=== PATIENT | female | born 2000 | race African-American/Black ===

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

== ENCOUNTER 2018-05-31 23:02 | Emergency (ER) | payer MEDICAID ==
[~2018-05-31] VITALS: Ht 165.1 cm; Wt 65.1 kg
[2018-05-31 23:10] VITALS: BP 130/76
--- NOTE | 2018-05-31 23:12 | NUR ---
PT RETURNED TO LOBBY IN STABLE CONDITION
--- NOTE | 2018-05-31 23:17 | NUR ---
TO ER BED 12
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
--- NOTE | 2018-05-31 23:54 | NUR ---
TO RADIOLOGY VIA
[2018-06-01 00:23] LABS: BASOPHILS % (AUTO) 0.6 % (0.0-2.0); EOSINOPHILS # (AUTO) 0.1 K/uL (0-0.4); EOSINOPHILS % (AUTO) 2.7 % (0.0-4.0); HEMATOCRIT 37.9 % (36-48); HEMOGLOBIN 12.3 g/dL (12.0-16.0); LYMPHOCYTES # (AUTO) 1.6 K/uL (2.5-16.5); LYMPHOCYTES % (AUTO) 34.5 % (20.5-51.1); MEAN CORPUSCULAR HEMOGLOBIN 27 pg (27-31); MEAN CORPUSCULAR HGB CONC 32 g/dL (33-37); MONOCYTES # (AUTO) 0.5 K/uL (0.8-1.0); MONOCYTES % (AUTO) 10.9 % (1.7-9.3); NEUTROPHILS # (AUTO) 2.4 K/uL (1.8-7.7); NEUTROPHILS % (AUTO) 51.3 % (42.2-75.2); PLATELET COUNT (AUTO) 290 K/uL (140-450); RED BLOOD CELL COUNT(AUTO) 4.51 MIL/uL (4.20-5.40); RED CELL DISTRIBUTION WIDTH 12.7 % (11.6-13.7); WHITE BLOOD COUNT (AUTO) 4.6 K/uL (4.5-11.0)
[2018-06-01 00:55] VITALS: BP 127/71
[2018-06-01 01:34] LABS: ALBUMIN 3.6 g/dL (3.4-5.0); ANION GAP 10.6 (8-16); CARBON DIOXIDE 30.4 mmol/L (21-32); CREATININE 0.8 mg/dL (0.6-1.3); TOTAL BILIRUBIN 0.4 mg/dL (0.0-1.0)
== END 2018-06-01 00:54 | disposition home or self-care (01) ==
LOC: MED 23:02
DX: K59.00 Constipation, unspecified (principal)
CPT/HCPCS: 36415; 74018; 80053; 81002; 81025; 83690; 85025; 99284

== ENCOUNTER 2019-01-21 21:19 | Emergency (ER) | payer MEDICAID ==
[~2019-01-21] VITALS: Ht 165.1 cm; Wt 68.9 kg
[2019-01-21 21:26] VITALS: BP 113/70
--- NOTE | 2019-01-21 21:34 | NUR ---
PT AMBULATED TO BED 2
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
[2019-01-21] MEDS ORDERED: BACITRACIN OINT 500 UNITS/GM PKT TP ONE (21:45)
--- NOTE | 2019-01-21 21:55 | NUR ---
APPLIED NEOSPORIN TO ABRASION ON LEFT FOREHEAD
[2019-01-21] MEDS ORDERED: NEOMYCIN/POLYMYXIN/BACITRACIN 0.9 GM/1 PKT TP ONE ×2 (22:00→22:02)
--- NOTE | 2019-01-21 22:04 | NUR ---
Patient discharged with v/s stable. Written and verbal after care instructions given and explained. Pt instructed to take antibiotics as prescribed as prophylactic treatment. Patient alert, oriented and verbalized understanding of instructions. Ambulatory with steady gait. All questions addressed prior to discharge. ID band removed. Patient advised to follow up with PMD. Rx of KEFLEX AND IBUPROFEN was given. Patient educated on indication of medication including possible reaction and side effects. Opportunity to ask questions provided and answered.
[2019-01-21 22:06] VITALS: BP 113/70
== END 2019-01-21 22:04 | disposition home or self-care (01) ==
LOC: MED 21:19
DX: S00.03XA Contusion of scalp, initial encounter (principal); Z88.5 Allergy status to narcotic agent; Z90.49 Acquired absence of other specified parts of digestive tract; Y00.XXXA Assault by blunt object, initial encounter; Y93.89 Activity, other specified; Y92.89 Other specified places as the place of occurrence of the external cause; Y99.8 Other external cause status
CPT/HCPCS: 90471; 90715; 99283

== ENCOUNTER 2019-04-22 22:39 | Emergency (ER) | payer MEDICAID ==
[~2019-04-22] VITALS: Ht 167.6 cm; Wt 70.8 kg
[2019-04-22 22:41] VITALS: BP 116/70
--- NOTE | 2019-04-22 22:48 | NUR ---
PT TAKEN TO BED 1
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
[2019-04-22 23:39] VITALS: BP 116/70
--- NOTE | 2019-04-22 23:40 | NUR ---
Patient discharged with v/s stable. Written and verbal after care instructions given and explained. Patient alert, oriented and verbalized understanding of instructions. Ambulatory with steady gait. All questions addressed prior to discharge. ID band removed. Patient advised to follow up with PMD. Rx of HYDROCORTISONE CREAM given. Patient educated on indication of medication including possible reaction and side effects. Opportunity to ask questions provided and answered.
== END 2019-04-22 23:40 | disposition home or self-care (01) ==
LOC: MED 22:39
DX: L25.9 Unspecified contact dermatitis, unspecified cause (principal); Z88.5 Allergy status to narcotic agent
CPT/HCPCS: 99282

== ENCOUNTER 2019-04-29 23:06 | Emergency (ER) | payer MEDICAID ==
[~2019-04-29] VITALS: Ht 167.6 cm; Wt 70.8 kg
[2019-04-29 23:10] VITALS: BP 134/79
--- NOTE | 2019-04-29 23:10 | NUR ---
TO BED # 05 AMBULATORY
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
[2019-04-30] MEDS ORDERED: ACETAMINOPHEN 325 MG TAB PO ONE (00:20)
--- NOTE | 2019-04-30 01:06 | NUR ---
RAD AT BEDSIDE.
--- NOTE | 2019-04-30 01:15 | NUR ---
PT LAYING SUPINE. NO C/O AT THIS TIME. WILL CONTINUE TO MONITOR.
--- NOTE | 2019-04-30 01:21 | NUR ---
PT WENT TO CT BY WHEEL CHAIR
--- NOTE | 2019-04-30 01:50 | NUR ---
PT RETURNED FROM CT VIA WHEELCHAIR
--- NOTE | 2019-04-30 02:44 | NUR ---
PT LAYING FLAT. VSS. [id number]. WILL CONTINUE MONITOR.
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
[2019-04-30 03:01] VITALS: BP 105/66
--- NOTE | 2019-04-30 04:15 | NUR ---
PT SEEN WITH EYES CLOSED. VISIBLE CHEST RISE AND FALL NOTED. WILL CONTINUE TO MONITOR.
--- NOTE | 2019-04-30 05:07 | NUR ---
Patient discharged with v/s stable. Written and verbal after care instructions given and explained. Patient verbalized understanding. Ambulatory with steady gait. All questions addressed prior to discharge. Advised to follow up with PMD.
== END 2019-04-30 05:07 | disposition home or self-care (01) ==
LOC: MED 23:06
DX: R51 Headache (principal); M54.2 Cervicalgia; R07.89 Other chest pain; F14.10 Cocaine abuse, uncomplicated; Z88.5 Allergy status to narcotic agent; Y04.2XXA Assault by strike against or bumped into by another person, initial encounter; Y93.89 Activity, other specified; Y92.89 Other specified places as the place of occurrence of the external cause; Y99.8 Other external cause status
CPT/HCPCS: 70450; 71045; 72125; 81025; 99284; Q0092; 99283

== ENCOUNTER 2019-11-02 11:28 | Emergency (ER) | payer MEDICAID ==
[~2019-11-02] VITALS: Ht 172.7 cm; Wt 72.1 kg
[2019-11-02 11:33] VITALS: BP 126/66
--- NOTE | 2019-11-02 11:49 | NUR ---
DR VASQUEZ EVALUATING PT AT BEDSIDE
--- NOTE | 2019-11-02 12:21 | NUR ---
Female Call Worker Person (MYSELF) accompanied DR. VASQUEZ FOR female patient Pelvic Exam.
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
--- NOTE | 2019-11-02 12:26 | NUR ---
[facility] [place] WALKED TO LAB BY DR VASQUEZ
[2019-11-02 12:31] LABS: APPEARANCE,URINE SL CLOUDY (CLEAR); BILIRUBIN,URINE NEGATIVE (NEGATIVE); BLOOD, URINE NEGATIVE (NEGATIVE); COLOR,URINE YELLOW (YELLOW); LEUKOCYTE ESTERASE ,URINE NEGATIVE (NEGATIVE); NITRITE, URINE NEGATIVE (NEGATIVE); PH,URINE 5.5 (5.0-9.0); UGLUCOSE NEGATIVE (NEGATIVE)
[2019-11-02] MEDS ORDERED: LIDOCAINE MPF 1% 5 ML ONE (12:44)
[2019-11-02] MEDS ORDERED: cefTRIAXone 250 MG VIAL ONE (12:44)
[2019-11-02] MEDS ORDERED: AZITHROMYCIN 250 MG TAB PO ONE (12:45)
[2019-11-02] MEDS ORDERED: cefTRIAXone 250 MG in LIDOCAINE MPF 1% 0.9 ML IM ONE (12:45)
[2019-11-02 13:10] VITALS: BP 131/62
--- NOTE | 2019-11-02 13:10 | NUR ---
Patient discharged with v/s stable. Written and verbal after care instructions given and explained. Patient alert, oriented and verbalized understanding of instructions. Ambulatory with steady gait. All questions addressed prior to discharge. ID band removed. Patient advised to follow up with PMD. Rx of FLAGYL given. Patient educated on indication of medication including possible reaction and side effects. Opportunity to ask questions provided and answered. PT INSTRUCTED ON SAFE SEX PRACTICE
--- NOTE | 2019-11-02 13:10 | NUR ---
NADR, PAIN 07/02
--- NOTE | 2019-11-04 17:28 | NUR ---
CALLED PT LEFT V-MAIL TO COME BACK TO [facility] ER FOR TEST RESULTS OR CALL [facility] AT [phone]
== END 2019-11-02 13:10 | disposition home or self-care (01) ==
LOC: MED 11:28
DX: N76.0 Acute vaginitis (principal); Z88.6 Allergy status to analgesic agent
CPT/HCPCS: 36415; 81003; 81025; 87210; 87491; 96372; 99283; J0696; J2001

== ENCOUNTER 2020-02-18 15:45 | Emergency (ER) | payer MEDICAID ==
[~2020-02-18] VITALS: Ht 167.6 cm; Wt 69.1 kg
[2020-02-18 16:01] VITALS: BP 117/71
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
--- NOTE | 2020-02-18 17:19 | NUR ---
STREP SWAB SAMPLE COLLECTED
--- NOTE | 2020-02-18 17:20 | NUR ---
PT AMB TO RESTROOM TO PROVIDE URINE SAMPLE
--- NOTE | 2020-02-18 17:21 | NUR ---
ASKED LAB TO COME BOTTLE GAUGER STREP SAMPLE
--- NOTE | 2020-02-18 17:29 | NUR ---
STREP SWAB SAMPLE PICKED UP BY JOSHUA
[2020-02-18 17:58] VITALS: BP 125/68
--- NOTE | 2020-02-18 17:58 | NUR ---
Patient discharged with v/s stable. Written and verbal after care instructions given and explained. Patient alert, oriented and verbalized understanding of instructions. Ambulatory with steady gait. All questions addressed prior to discharge. ID band removed. Patient advised to follow up with PMD. Rx of PREDNISONE, IBUPROFEN, CHLORASEPTIC THROAT SPRAY given. Patient educated on indication of medication including possible reaction and side effects. Opportunity to ask questions provided and answered.
== END 2020-02-18 17:58 | disposition home or self-care (01) ==
LOC: MED 15:45
DX: J02.9 Acute pharyngitis, unspecified (principal); Z88.5 Allergy status to narcotic agent; Z90.49 Acquired absence of other specified parts of digestive tract
CPT/HCPCS: 81002; 81025; 87081; 99283

== ENCOUNTER 2020-04-19 16:10 | Emergency (ER) | payer MEDICAID ==
[~2020-04-19] VITALS: Ht 165.1 cm; Wt 74.8 kg
[2020-04-19 16:52] VITALS: BP 114/78
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
[2020-04-19] MEDS ORDERED: DEXAMETHASONE 4 MG/ML VIAL PO ONE (17:05)
[2020-04-19 17:30] VITALS: BP 111/67
--- NOTE | 2020-04-19 17:30 | NUR ---
Patient discharged with v/s stable. Written and verbal after care instructions given and explained. Patient alert, oriented and verbalized understanding of instructions. Ambulatory with steady gait. All questions addressed prior to discharge. ID band removed. Patient advised to follow up with PMD. Rx of AUGMENTIN & CHLORHEXIDINR CLUCONATE given. Patient educated on indication of medication including possible reaction and side effects. Opportunity to ask questions provided and answered.
== END 2020-04-19 17:30 | disposition home or self-care (01) ==
LOC: MED 16:10
DX: J03.90 Acute tonsillitis, unspecified (principal); Z88.5 Allergy status to narcotic agent
CPT/HCPCS: 99283; J1100

== ENCOUNTER 2021-03-02 15:57 | Emergency (ER) | payer MEDICAID ==
[~2021-03-02] VITALS: Ht 165.1 cm; Wt 67.1 kg
[2021-03-02 16:17] VITALS: BP 133/75
[2021-03-02] MEDS ORDERED: FAMO-92 PO (17:21)
[2021-03-02 17:41] VITALS: BP 133/75
== END 2021-03-02 17:41 | disposition home or self-care (01) ==
LOC: MED 15:57
DX: K21.9 Gastro-esophageal reflux disease without esophagitis (principal); R11.0 Nausea; F12.90 Cannabis use, unspecified, uncomplicated; Z88.5 Allergy status to narcotic agent; Z98.890 Other specified postprocedural states
CPT/HCPCS: 81002; 81025; 99283

== ENCOUNTER 2022-02-14 12:35 | Emergency (ER) | payer MEDICAID ==
[~2022-02-14] VITALS: Ht 167.6 cm; Wt 70.3 kg
[~2022-02-14 12:35] MED LIST: FAMO-92 PO
[2022-02-14 12:49] VITALS: BP 130/85
[2022-02-14] MEDS ORDERED: IBUP-2213 PO (14:08)
[2022-02-14] MEDS ORDERED: AMOX500C25 PO (14:10)
--- NOTE | 2022-02-14 14:31 | NUR ---
Patient discharged with v/s stable. Written and verbal after care instructions ABOUT OTITIS MEDIA given and explained. Patient alert, oriented and verbalized understanding of instructions. Ambulatory with steady gait. All questions addressed prior to discharge. ID band removed. Patient advised to follow up with PMD. Rx of AMOXICLLIN AND IBUPROFEN given. Patient educated on indication of medication including possible reaction and side effects. Opportunity to ask questions provided and answered.
== END 2022-02-14 14:31 | disposition home or self-care (01) ==
LOC: MED 12:35
DX: H66.91 Otitis media, unspecified, right ear (principal); K21.9 Gastro-esophageal reflux disease without esophagitis; Z88.5 Allergy status to narcotic agent
CPT/HCPCS: 99283

== ENCOUNTER 2023-01-02 15:18 | Emergency (ER) | payer MEDICAID ==
[~2023-01-02] VITALS: Ht 167.6 cm; Wt 70.3 kg
[~2023-01-02 15:18] MED LIST changes: +AMOX500C25 PO; +IBUP-2213 PO
[2023-01-02 15:26] VITALS: BP 110/66; PULSE 82; RESP 16; TEMP 98.4
[2023-01-02] MEDS ORDERED: IBUPROFEN 600 MG TAB PO ONE (15:45)
[2023-01-02] MEDS ORDERED: IBUP-2213 PO (16:36)
== END 2023-01-02 16:50 | disposition home or self-care (01) ==
LOC: MED 15:18
DX: S62.634A Displaced fracture of distal phalanx of right ring finger, initial encounter for closed fracture (principal); K21.9 Gastro-esophageal reflux disease without esophagitis; Z79.899 Other long term (current) drug therapy; Z79.1 Long term (current) use of non-steroidal anti-inflammatories (NSAID); Z79.2 Long term (current) use of antibiotics; Z88.5 Allergy status to narcotic agent; W01.0XXA Fall on same level from slipping, tripping and stumbling without subsequent striking against object, initial encounter; Y92.89 Other specified places as the place of occurrence of the external cause; Y93.89 Activity, other specified; Y99.8 Other external cause status
CPT/HCPCS: 29130; 73110; 73130; 81025; 99284; Q0092

== ENCOUNTER 2024-02-10 20:33 | Emergency (ER) | payer MEDICAID ==
[~2024-02-10] VITALS: Ht 165.1 cm; Wt 68.0 kg
[2024-02-10 20:55] VITALS: BP 114/66; PULSE 89; RESP 17; TEMP 98.2; O2SAT 98
[2024-02-10] MEDS ORDERED: LORA10TA19 PO (21:59)
[2024-02-10] MEDS ORDERED: FLONAS NS (21:59)
[2024-02-10] MEDS: DEXAMETHASONE 4 MG/ML VIAL PO ONE (22:15)
[2024-02-10 22:45] VITALS: BP 121/78; PULSE 81; RESP 17; TEMP 98; O2SAT 97
== END 2024-02-10 22:45 | disposition home or self-care (01) ==
LOC: MED 20:33
DX: L50.9 Urticaria, unspecified (principal); J06.9 Acute upper respiratory infection, unspecified; K21.9 Gastro-esophageal reflux disease without esophagitis; Z79.899 Other long term (current) drug therapy; Z88.5 Allergy status to narcotic agent
CPT/HCPCS: 99283; J1100